=== PATIENT | male | born 1945 | race Caucasian/White ===

== ENCOUNTER 2020-10-13 06:33 | Outpatient (REF) | payer MEDICARE, BC, SELFPAY ==
[2020-10-13 08:10] LABS: MANUAL DIFF FLAG NO
[2020-10-13 08:19] LABS: Basophils Percent Auto 0.3 % (0-2); Eosinophils Absolute Auto 0.2 X10*3/uL (0.0-0.4); Eosinophils Percent Auto 2.1 % (0-4); Hematocrit 50.2 % (42-52); Hemoglobin 16.9 g/dl (14.0-18.0); Imm Gran Abs Auto 0.03 X10*3/uL (0.00-0.03); Imm Gran Pct Auto 0.4 % (0.0-0.4); Lymphocytes Absolute Auto 1.8 X10*3/uL (1.2-4.9); Mean Corpuscular HGB Conc 33.7 g/dl (31.0-36.0); Mean Corpuscular Hemoglobin 29.6 pg (27.0-33.0); Mean Corpuscular Volume 88.1 fL (80-98); Mean Platelet Volume 11.5 fL (9.4-12.4); Monocytes Absolute Auto 0.9 X10*3/uL (0.1-1.2); Monocytes Percent Auto 11.2 % (2-11); Neutrophils Absolute Auto 4.7 X10*3/uL (2.0-8.3); Platelet Count 214 X10*3/uL (160-400); Red Cell Distribution Width 13.3 % (11.0-16.0); White Blood Count 7.6 X10*3/uL (4.8-10.8)
[2020-10-13 08:39] LABS: Alanine Aminotransferase 24 U/L (0-40); Albumin Level 4.4 g/dL (3.5-5.0); Alkaline Phosphatase 69 U/L (39-117); Anion Gap 13 (12-20); Aspartate Amino Transferase 29 U/L (5-37); Bilirubin Total 0.8 mg/dL (0.0-1.0); Blood Urea Nitrogen 18 mg/dL (9-16); Carbon Dioxide 32 mmol/L (22-29); Chloride 101 mmol/L (96-108); Cholesterol 156 mg/dL; Estimated Glomerular Filt Rate > 60; Glucose Random 99 mg/dL (60-115); HDL Cholesterol 43 mg/dL; LDL Cholesterol Calculated 99 mg/dl; Potassium 3.9 mmol/L (3.3-5.1); Sodium 142 mmol/L (135-145); Total Protein 6.9 g/dL (6.5-8.0); Triglycerides 71 mg/dL
== END 2020-10-13 06:34 | disposition home or self-care (01) ==
LOC: HO.LAB 06:33
PROVIDERS: PCP Internal Medicine; Visit Provider Internal Medicine
DX: Z00.01 Encounter for general adult medical examination with abnormal findings (principal)
CPT/HCPCS: 36415; 80053; 80061; 85025

== ENCOUNTER 2022-01-11 06:16 | Outpatient (REF) | payer MEDICARE, BC, SELFPAY ==
[2022-01-11 06:29] LABS: MANUAL DIFF FLAG NO
[2022-01-11 07:14] LABS: Basophils Percent Auto 0.3 % (0-2); Eosinophils Absolute Auto 0.2 X10*3/uL (0.0-0.4); Eosinophils Percent Auto 2.2 % (0-4); Hematocrit 49.2 % (42.0-52.0); Hemoglobin 16.5 g/dl (14.0-18.0); Imm Gran Abs Auto 0.06 X10*3/uL (0.00-0.03); Imm Gran Pct Auto 0.8 % (0.0-0.4); Lymphocytes Absolute Auto 1.7 X10*3/uL (1.2-4.9); Lymphocytes Percent Auto 23.7 % (20-40); Mean Corpuscular HGB Conc 33.5 g/dl (31.0-36.0); Mean Corpuscular Hemoglobin 29.4 pg (27.0-33.0); Mean Corpuscular Volume 87.7 fL (80.0-98.0); Mean Platelet Volume 11.7 fL (9.4-12.4); Monocytes Absolute Auto 0.9 X10*3/uL (0.1-1.2); Monocytes Percent Auto 13.1 % (2-11); Neutrophils Absolute Auto 4.3 x10*3/uL (2.0-8.3); Neutrophils Percent Auto 59.9 % (45-73); Platelet Count 218 X10*3/uL (160-400); Red Blood Count 5.61 X10*6/uL (4.60-5.80); Red Cell Distribution Width 13.3 % (11.0-16.0); White Blood Count 7.2 X10*3/uL (4.8-10.8)
[2022-01-11 07:42] LABS: Alanine Aminotransferase 22 U/L (0-40); Albumin Level 4.5 g/dL (3.5-5.0); Alkaline Phosphatase 68 U/L (39-117); Anion Gap 15 (12-20); Aspartate Amino Transferase 29 U/L (5-37); Bilirubin Total 0.7 mg/dL (0.0-1.0); Blood Urea Nitrogen 15 mg/dL (9-16); Calcium 9.8 mg/dL (8.4-10.2); Carbon Dioxide 31 mmol/L (22-29); Chloride 101 mmol/L (96-108); Cholesterol 164 mg/dL; Estimated Glomerular Filt Rate 58; Glucose Random 103 mg/dL (60-115); HDL Cholesterol 44 mg/dL; LDL Cholesterol Calculated 99 mg/dl; Potassium 3.9 mmol/L (3.3-5.1); Sodium 143 mmol/L (135-145); Total Protein 6.8 g/dL (6.5-8.0); Triglycerides 106 mg/dL
[2022-01-11 08:05] LABS: Vitamin B12 482 pg/mL (200-900)
[2022-01-11 08:06] LABS: Prostate Specific Antigen 3.63 ng/mL (<0.05-4.0); Vitamin D 25-OH Total 32.8 ng/mL (>30)
== END 2022-01-11 06:17 | disposition home or self-care (01) ==
LOC: HO.LAB 06:16
PROVIDERS: PCP Internal Medicine; Visit Provider Internal Medicine
DX: Z00.01 Encounter for general adult medical examination with abnormal findings (principal); Z12.5 Encounter for screening for malignant neoplasm of prostate
CPT/HCPCS: 36415; 80053; 80061; 82306; 82607; 84153; 85025

== ENCOUNTER 2023-03-14 06:49 | Outpatient (REF) | payer MEDICARE, BC, SELFPAY ==
[2023-03-14 07:12] LABS: MANUAL DIFF FLAG NO
[2023-03-14 07:31] LABS: Basophils Percent Auto 0.3 % (0-2); Eosinophils Absolute Auto 0.1 X10*3/uL (0.0-0.4); Eosinophils Percent Auto 1.1 % (0-4); Hematocrit 47.6 % (42.0-52.0); Imm Gran Abs Auto 0.05 X10*3/uL (0.00-0.03); Imm Gran Pct Auto 0.8 % (0.0-0.4); Lymphocytes Absolute Auto 1.3 X10*3/uL (1.2-4.9); Lymphocytes Percent Auto 20.2 % (20-40); Mean Corpuscular HGB Conc 33.6 g/dl (31.0-36.0); Mean Corpuscular Hemoglobin 29.7 pg (27.0-33.0); Mean Corpuscular Volume 88.3 fL (80.0-98.0); Mean Platelet Volume 11.1 fL (9.4-12.4); Monocytes Absolute Auto 0.8 X10*3/uL (0.1-1.2); Monocytes Percent Auto 12.4 % (2-11); Neutrophils Absolute Auto 4.2 x10*3/uL (2.0-8.3); Neutrophils Percent Auto 65.2 % (45-73); Platelet Count 284 X10*3/uL (160-400); Red Blood Count 5.39 X10*6/uL (4.60-5.80); Red Cell Distribution Width 13.1 % (11.0-16.0); White Blood Count 6.5 X10*3/uL (4.8-10.8)
[2023-03-14 08:09] LABS: Alanine Aminotransferase 22 U/L (0-40); Albumin Level 4.6 g/dL (3.5-5.0); Alkaline Phosphatase 61 U/L (39-117); Anion Gap 15 (12-20); Aspartate Amino Transferase 31 U/L (5-37); Bilirubin Total 0.7 mg/dL (0.0-1.0); Blood Urea Nitrogen 15 mg/dL (9-16); Calcium 9.8 mg/dL (8.4-10.2); Carbon Dioxide 28 mmol/L (22-29); Chloride 104 mmol/L (96-108); Estimated Glomerular Filt Rate > 60; Glucose Random 107 mg/dL (60-115); Potassium 3.5 mmol/L (3.3-5.1); Sodium 143 mmol/L (135-145); Total Protein 7.3 g/dL (6.5-8.0)
[2023-03-14 08:28] LABS: Prostate Specific Antigen 7.33 ng/mL (<0.05-4.0)
[2023-03-16 02:43] LABS: LDL Cholesterol Direct 97 mg/dL (<100)
== END 2023-03-14 06:50 | disposition home or self-care (01) ==
LOC: HO.LAB 06:49
PROVIDERS: Visit Provider Internal Medicine
DX: I10 Essential (primary) hypertension (principal); E78.00 Pure hypercholesterolemia, unspecified; Z12.5 Encounter for screening for malignant neoplasm of prostate
CPT/HCPCS: 36415; 80053; 83721; 84153; 85025

== ENCOUNTER 2023-04-12 06:18 | Outpatient (REF) | payer MEDICARE, BC, SELFPAY ==
[2023-04-12 08:33] LABS: PSA,Total (Free>4and<10) 4.41 ng/mL (0.00-4.00)
[2023-04-13 10:49] LABS: Free Prostate Spec Ag 0.9 ng/mL; Percent Free Prostate Spec Ag 23 % (calc) (>25); Prostate Specific Ag Total 3.9 ng/mL (< OR = 4.0)
== END 2023-04-12 06:19 | disposition home or self-care (01) ==
LOC: HO.LABR 06:18
PROVIDERS: PCP Internal Medicine; Visit Provider Internal Medicine
DX: Z12.5 Encounter for screening for malignant neoplasm of prostate (principal); R97.20 Elevated prostate specific antigen [PSA]
CPT/HCPCS: 36415; 84153; 84154

== ENCOUNTER 2024-03-19 06:29 | Outpatient (REF) | payer MEDICARE, BC, SELFPAY ==
[2024-03-19 06:43] LABS: MANUAL DIFF FLAG NO
[2024-03-19 07:46] LABS: Basophils Percent Auto 0.3 % (0-2); Eosinophils Absolute Auto 0.1 X10*3/uL (0.0-0.4); Eosinophils Percent Auto 1.8 % (0-4); Hemoglobin 16.3 g/dl (14.0-18.0); Imm Gran Abs Auto 0.02 X10*3/uL (0.00-0.03); Imm Gran Pct Auto 0.3 % (0.0-0.4); Lymphocytes Absolute Auto 1.4 X10*3/uL (1.2-4.9); Lymphocytes Percent Auto 22.9 % (20-40); Mean Corpuscular HGB Conc 33.3 g/dl (31.0-36.0); Mean Corpuscular Hemoglobin 29.7 pg (27.0-33.0); Mean Corpuscular Volume 89.3 fL (80.0-98.0); Mean Platelet Volume 10.9 fL (9.4-12.4); Monocytes Absolute Auto 0.8 X10*3/uL (0.1-1.2); Monocytes Percent Auto 12.5 % (2-11); Neutrophils Absolute Auto 3.7 x10*3/uL (2.0-8.3); Neutrophils Percent Auto 62.2 % (45-73); Platelet Count 210 X10*3/uL (160-400); Red Blood Count 5.49 X10*6/uL (4.60-5.80); Red Cell Distribution Width 13.4 % (11.0-16.0)
[2024-03-19 08:23] LABS: Alanine Aminotransferase 25 U/L (0-40); Albumin Level 4.4 g/dL (3.5-5.0); Alkaline Phosphatase 68 U/L (39-117); Anion Gap 11 (12-20); Aspartate Amino Transferase 36 U/L (5-37); Blood Urea Nitrogen 15 mg/dL (9-16); Calcium 9.8 mg/dL (8.4-10.2); Carbon Dioxide 30 mmol/L (22-29); Chloride 102 mmol/L (96-108); Cholesterol 143 mg/dL (<200); Estimated Glomerular Filt Rate > 60; Glucose Random 106 mg/dL (60-115); HDL Cholesterol 38 mg/dL (>40); LDL Cholesterol Calculated 90 mg/dL (<100); Potassium 4.1 mmol/L (3.3-5.1); Sodium 139 mmol/L (135-145); Total Protein 7.1 g/dL (6.5-8.0); Triglycerides 79 mg/dL (<150)
[2024-03-19 08:34] LABS: Prostate Specific Antigen 5.06 ng/mL (<0.05-4.0)
== END 2024-03-19 06:30 | disposition home or self-care (01) ==
LOC: HO.LAB 06:29
PROVIDERS: PCP Internal Medicine; Visit Provider Internal Medicine
DX: E78.00 Pure hypercholesterolemia, unspecified (principal); I10 Essential (primary) hypertension; Z12.5 Encounter for screening for malignant neoplasm of prostate
CPT/HCPCS: 36415; 80053; 80061; 84153; 85025

== ENCOUNTER 2025-04-03 06:35 | Outpatient (REF) | payer MEDICARE, BC, SELFPAY ==
--- OUTSIDE RECORDS SUMMARY | 2025-04-03 06:38 | XMS_ITS | Patient Health Record ---
Author Organization [facility] Address [address] [place] [address] Care Team Providers Care Director Global Sales Name Role Phone Ibeth (RETIRED) Jerome UGADLE Primary Care Provide r Unavailable Eric Crystal Unavailable [phone] Reason For Referral No Information Medications Medication SIG (Take, Route, Frequency, Duration) Notes Start Date End Date Status Aspir-81 81mg Acti ve Klor-Con 10 10meq Active Simvastatin 40mg A ctive Atenolol 50mg Acti ve MoviPrep 100 GM Solution Reconstituted as directed Orally as directed; Duration: 1 dose 11/09/2012 Active Social History Social History Additional Details Category Social Info Options Details Miscellaneous: Marital status: single 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 alcohol Problems Problem Type SNOMED Code ICD Code Onset Dates Problem Status W/U Status Risk Notes Problem Already on aspirin (875683363) Long-term (current) use of aspirin (V58.66) Active confirmed Problem Colon cancer screening (574809913) Colon cancer screening (V76.51) Active confirmed Problem History of adenomatous polyp of colon (990727154) History of adenomatous polyp of colon (V12.72) Active confirmed Plan Of Treatment Future Test Test Name Order Date COLONOSCOPY 11/09/2012 Insurance Providers Payer Name Payer Address Payer Phone Subscriber Number Group Number Insured Name Patient Relationship to Insured Coverage Start Date Coverage End Date [facility] [address] [place], [place] [id number] [phone] [id number] PAWELERNESTINA Noe Self - patient is the insured Medical (General) History Medical History History ICD Code colonoscopy 04-04-2008--neg. except sigmoid diverticulosis and int. hemorrhoids colon polyps-tubular adenoma removed in 07/2001 hypertension Denies [place],DM,CVA,Lung disease,renal dise ase Hyperlipdemia Surgical History Surgery Date(Month/Year) hernia surgery appendectomy Basal cell on nose in 07/2012
--- OUTSIDE RECORDS SUMMARY | 2025-04-03 06:38 | XMS_ITS | Data Portability ---
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 MODERATE MUST MEET 2 OUT OF 3 ELEMENTS: PROBLEMS, DATA OR RISK ELEMENT 1: PROBLEMS ADDRESSED 1 OR MORE CHRONIC ILLNESS WITH EXACERBATION OR 2 OR MORE STABLE CHRONIC ILLNESSES OR 1 UNDIAGNOSED NEW PROBLEM OR 1 ACUTE ILLNESS W/SYMPTOMS OR 1 ACUTE COMPLICATED INJURY ELEMENT 2: DATA MUST MEET 1 OF 3 CATEGORIES CATEGORY 1: REVIEW OF PRIOR EXTERNAL NOTES, REVIEW OF RESULTS, ORDERING OF EACH TEST, ASSESSMENT REQUIRING INDEPENDENT HISTORIAN OR CATEGORY 2: INDEPENDENT INTERPRETATION OF TESTS BY ANOTHER PHYSICIAN OR SPECIALIST OR CATEGORY 3: DISCUSSION OF MGT OR TEST INTERPRETATION W/EXTERNAL PHYSICIAN OR SPECIALIST ELEMENT 3: RISK RISK OF COMPLICATIONS AND/OR MORBIDITY OR MORTALITY OF PATIENT MANAGEMENT PROVIDER MUST THOROUGHLY DOCUMENT EACH ELEMENT THAT IS COVERED Not available 03/29/2023 09:10:54 05/10/2024 05/10/2024 Patient presente d to office today for their Medicare Annual Wellness Visit. Education was provided on healthy nutrition, including a diet rich in fruits and vegetables, minimizing simple carbohydrates, salt, and saturated fats. Encouraged regular cardiovascular exercise such as walking at least 30 minutes daily, 5 times per week. Emphasized preventive health measures and educated pt on fall prevention and community-based lifestyle interventions to help reduce health risks and promote healthy living. Not available 05/10/2024 10:53:33 10/14/2024 10/14/2024 Patient presente d to office today for their Medicare Annual Wellness Visit. doing great and is staying very active lifting weights Education was provided on healthy nutrition, including a diet rich in fruits and vegetables, minimizing simple carbohydrates, salt, and saturated fats. Encouraged regular cardiovascular exercise such as walking at least 30 minutes daily, 5 times per week. Emphasized preventive health measures and educated pt on fall prevention and community-based lifestyle interventions to help reduce health risks and promote healthy living. Not available 10/14/2024 11:25:51 Plan of Treatment Reminders Order Date Submit Date Provider Last Modified By Organization Details Last Modified Time Details Appointments FOLLOW UP 15 2024 09:30A M DR RAMEY Not available Not available Not available MEDICARE ANNUAL WELLNESS 2025 09:00A M DR RAMEY Not available Not available Not available Lab lipid panel, blood 2024 025 [facility], [address] [place] [address], [id number], 10/14/2024 11:49:09 CMP, serum or plasma 2024 025 [facility], [address] [place] [address], [id number], 10/14/2024 11:49:09 PSA, serum or plasma 2024 025 [facility], [address] [place] [address], [id number], 10/14/2024 11:49:09 hemoglobi n, gastroint estinal, stool 2024 025 [facility], [address] [place] [address], [id number], 10/14/2024 11:49:09 CBC w/ auto diff 2024 025 [facility], [address] [place] [address], [id number], 10/14/2024 11:49:09 PSA, total + free, serum or plasma 2022 023 [facility], [address] [place] [address], [id number], 04/12/2023 11:07:14 PSA, total + free, serum or plasma 2022 024 [facility], [address], [place], [address], 10/03/2023 11:33:21 fecal occult blood, immunoass ay, stool 2022 023 [facility], [address], [address], [place], [address], 03/29/2023 10:03:43 Referral otolaryng ologist referral - noted to have sudden onset of hearing loss bilat with some tinnitus 2024 025 [facility], [address] [place], [address], 10/14/2024 13:57:41 Procedures None recorded. Surgeries None recorded. Imaging None recorded. Medication Orders ciproflox acin 500 mg tablet 2024 025 [facility][id number], [address] [place] [address], [id number], 08/19/2024 15:10:05 prednison e 10 mg tablet 2024 025 [facility][id number], [address] [place] [address], [id number], 08/19/2024 15:10:05 Patient TargetsNo targets recorded. Patient Instructions Encounter Date Encounter Id Patient Instructions Last Modified By Organization Details Last Modified Time 03/29/2023 [id number] prostate biopsy: about this test Not available 03/29/2023 09:19:10 colon polyps: care instructions Not available 03/29/2023 09:16:54 05/10/2024 [id number] advance care planning: care instructions Not available 05/10/2024 11:24:52 Discussed and explained advance directives such as standard forms to the . Face to face discussion lasted for a duration of ___ minutes. Not available 05/10/2024 10:53:33 10/14/2024 [id number] hearing loss: care instructions Not available 10/14/2024 11:31:36 advance care planning: care instructions Not available 10/14/2024 11:28:45 Discussed and explained advance directives such as standard forms to the . Face to face discussion lasted for a duration of ___ minutes. 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 Problems Name Problem SNOMED Code Status Onset Date Resolution Date Notes Provider Name and Address Organization Details Recorded Time Essential hypertensi on 14798527 Active 2018 1999 Not Available [facility] 2 09:40:59 Hyperchole sterolemia 41734682 Active 2018 2005 Not Available [facility] 2 09:40:59 Basal cell carcinoma of skin 116735543 Active 2018 nose Not Available [facility] 2 09:40:59 Polyp of colon 52786753 Active 2018 2002 Not Available [facility] 2 09:40:59 Gastroesop hageal reflux disease 131674726 Active 2020 Not Available [facility] 2 09:40:59 Prostate specific antigen above reference range 649712340 Active 2022 Pillo Ramey DO [address] [place] [address], [phone], [facility] 3 09:18:27 Acute sinusitis 36166423 Active 2024 OVIDIO WHEELER [address] [place] [address], [phone], [facility] 5 15:05:46 Acute otitis media 7085451 Active 2024 OVIDIO WHEELER [address] [place] [address], [phone], [facility] 5 15:07:32 Acute otitis media 3371027 Active 2024 OVIDIO WHEELER [address] [place] [address], [phone], [facility] 5 15:07:38 Sensorineu ral hearing loss of bilateral ears 691765097 Active 2024 Pillo Ramey, [address] [place] [address], [phone], [facility] 5 11:30:23 Problem Notes None recorded. Procedures Surgical History Date Name Laterality Status Provider Name and Address Organization Details Recorded Time 10/14/19 18 extraction of cataract completed Fatoumata Cotton NP, S [address] [place] [address], [phone], [facility] 09/26/2018 11:55:03 05/15/19 12 excision of hernial sac of left inguinal canal completed Fatoumata Cotton NP, S [address] [place] [address], [phone], [facility] 09/26/2018 12:24:59 Imaging Results None recorded. Procedure Notes None recorded. Medical Equipment None Reported. Allergies No known drug allergies Medications Name Sig Start Date Stop Date Status Note LastModified by Organization Details LastModified Time amoxicillin 500 mg capsule 07/23 completed Not Available Not Available Not Available neomycin-po lymyxin-hyd rocort 3.5 mg/mL-10,00 0 unit/mL-1 % ear solution TAKE 2 DROPS (OTIC (EAR)) 3 TIMES PER DAY FOR 10 DAYS 08/19 completed Not Available Not Available Not Available prednisone 10 mg tablet PLEASE SEE ATTACHED FOR DETAILED DIRECTION S active Not Available Not Available No t Available cetirizine 10 mg tablet TAKE 1 TABLET BY MOUTH EVERY DAY active Not Available Not Available No t Available atenolol 50 mg-chlortha lidone 25 mg tablet TAKE 1 TABLET BY MOUTH EVERY DAY active Not Available Not Available No t Available potassium chloride ER 10 mEq tablet,exte nded release TAKE 1 TABLET BY MOUTH EVERY DAY active Not Available Not Available No t Available ciprofloxac in 500 mg tablet TAKE 1 TABLET BY MOUTH EVERY 12 HOURS FOR 7 DAYS active Not Available Not Available No t Available simvastatin 40 mg tablet TAKE 1 TABLET BY MOUTH EVERY DAY active Not Available Not Available No t Available ketorolac 0.5 % eye drops 04/02 completed Not Available Not Available Not Available amoxicillin 875 mg tablet TAKE 1 TABLET BY MOUTH TWICE A DAY FOR 10 DAYS 08/19 completed Not Available Not Available Not Available mupirocin calcium 2 % topical cream 04/15 completed Not Available Not Available Not Available omeprazole 20 mg capsule,del ayed release TAKE 1 CAPSULE BY MOUTH EVERY DAY active Not Available Not Available No t Available mupirocin 2 % topical ointment APPLY TWICE A DAY TO SURGICAL SITE FOR 14 DAYS OR UNTIL FULLY HEALED 03/29 completed Not Available Not Available Not Available ketoconazol e 2 % topical cream APPLY TO FACE TWICE DAILY FOR MAINTENAN CE. 03/29 completed Not Available Not Available Not Available naproxen 500 mg tablet 04/15 completed Not Available Not Available Not Available Boostrix Tdap 2.5 Lf unit-8 mcg-5 Lf/0.5 mL intramuscul ar syringe 04/02 completed Not Available Not Available Not Available diclofenac 1 % topical gel Apply 2 g 4 times a day by topical route as directed for 30 days. 04/15 completed Not Available Not Available Not Available Fluzone High-Dose 9109-5207 (PF) 180 mcg/0.5 mL intramuscul ar syringe 04/02 completed Not Available Not Available Not Available Fluad Quad (6 5yr up)(PF) 60 mcg (15 mcg x 4)/0.5mL IM syringe TO BE ADMINISTE RED BY PHARMACIS T FOR IMMUNIZAT ION 04/15 completed Not Available Not Available Not Available Vitals Date Recorded Body height Body mass index (BMI) Body weight Heart rate Oxygen saturation Systolic And Diastolic Provider Name and Address Organization Details Last Updated DateTime 5 166.37 cm 24.5 kg/m2 40709.9 8 g 56 /min 97 % 124/82 mm[Hg] [facility] 5 14:50:41 Date Recorded Systolic And Diastolic Provider Name and Address Organization Details Last Updated DateTime 10/03/2023 126/78 mm[Hg] Berta Pelayo O [address] [place], [address], [facility] 10/03/2023 11:40:52 Date Recorded Body height Body mass index (BMI) Body weight Heart rate Respiratory rate Oxygen saturation Provider Name and Address Organization Details Last Updated DateTime 4 166.37 cm 24.7 kg/m2 09690.0 9 g 56 /min 16 /min 99 % Abhijete French [facility] 4 10:59:23 Date Recorded Body height Body mass index (BMI) Body weight Oxygen saturation Heart rate Systolic And Diastolic Provider Name and Address Organization Details Last Updated DateTime 5 166.37 cm 24.2 kg/m2 38541.9 5 g 99 % 49 /min 128/82 mm[Hg] ISABELA WOO [facility] 5 11:02:29 Date Recorded Body height Body mass index (BMI) Body weight Heart rate Oxygen saturation Systolic And Diastolic Provider Name and Address Organization Details Last Updated DateTime 3 163.2 cm 24.9 kg/m2 83795.4 9 g 54 /min 98 % 111/81 mm[Hg] Joseline Etienne [facility] 3 08:57:32 Date Recorded Body height Body mass index (BMI) Body weight Heart rate Oxygen saturation Systolic And Diastolic Provider Name and Address Organization Details Last Updated DateTime 4 166.37 cm 24.9 kg/m2 02681.6 8 g 52 /min 97 % 128/78 mm[Hg] Abhijeet French [facility] 4 10:55:12 Social History Question Answer Notes LastModified by Organizat ion Details LastModified Time Tobacco Smoking Status Never Smoker Jesusita day [facility] 09/26/2018 11:46:57 What Is Your Level Of Caffeine Consumption? Occasional 1 Cup Of Tea Information not available 04/02/2019 What Was The Date Of Your Most Recent Tobacco Screening? 10/14/2024 [email or web address] Information not available 10/14/2024 Sex: Unknown Functional Status Question Answer Note LastModified by Organizat ion Details LastModified Time What is your level of alcohol consumption? None Information not available 04/02/2019 What is your exercise level? Moderate walking Information not available 04/02/2019 Mental Status None recorded. Family History Relationship Description Onset Age of this Age Resolved Age Notes LastModified by Organization Details LastModified Time Mother Essential hypertension [email or web address] Not available 06/2024 10:54:02 Mother Hypercholest erolemia sbucko Not available 2018 09:04:16 Mother Cerebrovascu lar accident [email or web address] Not available 03/2019 09:04:27 Father Atrial fibrillation [email or web address] Not available 06/2024 10:54:02 Father Essential hypertension [email or web address] Not available 06/2024 10:54:02 Brother Essential hypertension [email or web address] Not available 06/2024 10:54:02 Brother Hypercholest erolemia sbucko Not available 2018 09:06:03 Brother Type 2 diabetes mellitus [email or web address] Not available 2024 10:54:02 Brother Cerebrovascu lar accident [email or web address] Not available 12:24:12 Sister Essential hypertension [email or web address] Not available 06/2024 10:54:02 Sister Essential hypertension [email or web address] Not available 06/2024 10:54:02 Sister Hypercholest erolemia sbucko Not available 2018 09:06:15 Sister Hypercholest erolemia sbucko Not available 2018 09:06:19 Medical History Condition Response Allergies/Hayfever N Heart Problems N Coronary Artery Disease N Kidney Stones N Blood Diseases N Hyperthyroidism N Blood Transfusion N Lung Disease N Depression N COPD N Defects or Inherited Disease N Anemia N Difficulty Swallowing N Constipation N Anesthesia Complications N Anxiety Disorder N Diabetes N Muscle, Joint, or Bone Problems Y Obesity N Polyps N Mental Disorder N Congestive Heart Failure (CHF) N Cancer N Abuse/Domestic Violence N Diverticulitis N Asthma N Bladder or Kidney Problems N Reflux/GERD N High Cholesterol Y Hepatitis N Liver Disease N Pulmonary Embolism N Hypertension Y Chicken Pox Y Kidney Disease N Immunizations Vaccine Type Date Status Note Provider Nam e and Address Organization Details Recorded Time zoster recombinant 07/02/19 22 completed [facility] 03/29/2023 08:49:04 Influenza, split virus, quadrivalent, preservative 03/31/20 21 completed [facility] 03/29/2023 08:49:04 SARS-COV-2 (COVID-19) vaccine, UNSPECIFIED 05/10/20 23 completed Joselinebing Etienne [facility] 05/10/2023 10:46:04 Tdap 04/23/20 19 completed Pillo Ramey, [address] [place] [address], [phone], [facility] 05/10/2024 11:20:52 influenza, unspecified formulation 03/26/20 24 completed Pillo Ramey DO [address] [place] [address], [phone], [facility] 05/10/2024 11:24:33 tetanus toxoid, unspecified formulation 07/14/19 10 completed Joseline Gencarelle [facility] 03/29/2023 08:49:04 pneumococcal, unspecified formulation 02/13/20 12 completed Joseline Gencarelle [facility] 03/29/2023 08:49:04 pneumococcal, unspecified formulation 08/05/19 15 completed Joseline Gencarelle [facility] 03/29/2023 08:49:04 zoster live 09/13/19 13 completed Jesusita Darby [facility] 07/23/2018 08:59:38 Tdap 09/29/19 19 completed Viridiana Lewis [facility] 10/01/2018 08:08:17 pneumococcal polysaccharide PPV23 09/29/19 19 completed Joseline Gencarelle [facility] 03/29/2023 08:49:04 Influenza, split virus, quadrivalent, preservative 02/13/20 19 completed Joseline Gencarelle [facility] 03/29/2023 08:49:04 Influenza, split virus, quadrivalent, preservative 01/19/20 18 completed Joseline Gencarelle null, [facility] 03/29/2023 08:49:04 Influenza, split virus, quadrivalent, preservative 01/08/20 20 completed Joseline Gencarelle [facility] 03/29/2023 08:49:04 COVID-19, mRNA, LNP-S, PF, 30 mcg/0.3 mL dose 08/14/19 21 completed Joseline Gencarelle null, [facility] 03/29/2023 08:49:04 COVID-19, mRNA, LNP-S, PF, 30 mcg/0.3 mL dose 09/05/19 21 completed Joseline Gencarelle [facility] 03/29/2023 08:49:04 Past Encounters Encounter ID Performer Location Encounter Start Date Encounter Closed Date Diagnosis/Indication Diagnosis SNOMED-CT Code Diagnosis ICD10 Code Diagnosis IMO Codes Diagnosis Note Pillo Ramey [facility] [address], [place] [address] 09/26/2018 11:31:01 09/26/2018 13:39:42 Hypercholesterolemia 25412088 E78.00 Essential hypertension 46493320 I10 stable Vitamin D deficiency 347 06756 E55.9 Screening procedure 2012 5006 Z13.9 Active or passive immunization 149170788 Z23 Impacted cerumen 7249496 6 H61.23 [facility] examination 011445575 Z00.00 [id number] Pillo Ramey [facility] [address], [place] [address] 04/02/2019 09:01:33 04/02/2019 10:02:21 Adult health examination 911903072 Z00.01 has thumb djd will try to get him some diclofenac gel Osteoarthr osis of the carpometacarpal joint of the thumb 44842520 M18.9 will try voltaren gell if unable consider hand specialist [id number] Pillo Ramey [facility] [address],[place] [address] 08/19/2019 10:02:07 08/19/2019 10:34:36 Essential hypertension 98693332 I10 doing great and is feeling good will cont to do what hes doing as he is active and eating right Hypercholesterolemia 136 33066 E78.00 excellent lab doing great no change in meds [id number] Pillo Ramey [facility] [address],[place] [address] 04/15/2020 14:16:08 04/15/2020 15:04:04 Active or passive immunization 286737765 Z23 discussed and he is utd Adult heal th examination 509514764 Z00.01 has thumb djd will try to get to the hand doc but he will need to call she has offered him a mary inj to the base of the thumb [id number] Pillo Hoodmellissa [address],[place] [address] 10/26/2020 09:45:49 10/26/2020 11:07:23 Hypercholesterolemia 56630549 E78.00 excellent lab doing great no change in meds ldl was 98 hdl 43 Essential hypertension 08421223 I10 doing great and is feeling good will cont to do what hes doing as he is active and eating right Gastroesop hageal reflux disease 109192414 K21.9 will have the pt start the omeprazole daily and then modify to keep the reflux quiet [id number] Pillo Quinonez Meenakshi [facility] [address] [place] [address],[place] [address] 07/23/2021 11:15:44 07/26/2021 14:21:45 Active or passive immunization 164077185 Z23 discussed and he is utd Adult heal th examination 041104729 Z00.01 has thumb djd did get to the hand doc but he will need to call as needed base of the thumb has more pain lately Essential hypertension 56595044 I10 doing great and is feeling good will cont to do what hes doing as he is active and eating rightbp is excellent Gastroesop hageal reflux disease 779266250 K21.9 will have the pt start the omeprazole daily and then modify to keep the reflux quiet Hypercholesterolemia 136 00523 E78.00 excellent lab doing great no change in meds ldl was 98 hdl 43 [id number] Pillo Ramey [facility] [address] [facility] [facility], [place] [address] 01/24/2022 10:14:24 01/24/2022 10:52:17 Essential hypertension 08145301 I10 doing great and is feeling good will cont to do what hes doing as he is active and eating rightbp is excellent Gastroesop hageal reflux disease 857150113 K21.9 will have the pt start the omeprazole daily and then modify to keep the reflux quiet Hypercholesterolemia 136 12444 E78.00 excellent lab doing great no change in meds ldl was 98 hdl 43 [id number] Pillo Ramey [facility] [address] [facility] [facility], [place] [address] 09/20/2022 11:16:28 09/20/2022 12:19:38 Active or passive immunization 244937087 Z23 discussed and he is utd Adult heal th examination 614287842 Z00.00 here for for cpe doing great no issues amzing cont exercising and eating good'rev wed lab from 6 mo ago Essential hypertension 96616856 I10 doing great and is feeling good will cont to do what hes doing as he is active and eating rightbp is excellent Hypercholesterolemia 136 53760 E78.00 excellent lab doing great no change in meds ldl was 98 hdl 43 [id number] Pillo Ramey [facility] [address],[place] [address] 03/29/2023 08:48:52 03/29/2023 09:51:45 Basal cell carcinoma of skin 559684547 C44.91 followed by dermatolog ist Essential hypertension 74878639 I10 doing great and is feeling good will cont to do what he's doing as he is active and eating rightbp is excellent Polyp of colon 93064989 K63.5 will order cologuard Prostate s pecific antigen above reference range 426569097 R97.20 [id number] Pillo Ramey [facility] [address] [facility],[place] [address] 10/03/2023 10:50:54 10/03/2023 13:10:12 Active or passive immunization 021691836 Z23 discussed and he is utd Adult heal th examination 462767900 Z00.00 here for for cpe doing great no issues amzing cont exercising and eating good'revie wed lab from 6 mo ago Depression screening 171 393273 Z13.31 Negative Basal cell carcinoma of skin 819086503 C44.91 followed by dermatolog ist no issues Hypercholesterolemia 136 02352 E78.00 last lab was excellent lab doing great no change in meds ldl was 98 hdl 43 Gastroesop hageal reflux disease 269443441 K21.9 the omeprazole daily working well [id number] Pillo Ramey [facility] [address] [place] [address] 05/10/2024 10:48:13 05/10/2024 11:27:29 Adult health examination 731851612 Z00.01 here for for cpe doing great no issues amzing cont exercising and eating good'revie wed lab from 6 mo ago Screening for cardiovascular system disease 031779147 Z13.6 reviewed lipids in detail Screening for malignant neoplasm of colon 948647599 Z12.11 cologuard done last apr Pillo Ramey [facility] [address] [facility],[place] [address] 08/19/2024 14:37:39 08/19/2024 15:16:58 Acute sinusitis 21431074 J01.01 will set up with pred taper for the sig inflammati on Acute otitis media 12543 03 H65.03 will set up with cipro [id number] Pillo Ramey [facility] [address] [facility] [facility],[place] [address] 10/14/2024 10:53:10 10/14/2024 11:41:01 Active or passive immunization 658718943 Z23 discussed and he is utd Essential hypertension 83094675 I10 doing great and is feeling good will cont to do what he's doing as he is active and eating rightbp is excellent Hypercholesterolemia 136 20170 E78.00 last lab was excellent lab doing great no change in meds ldl was 98 hdl 43 Screening for cardiovascular system disease 725892378 Z13.6 reviewed lipids in detail Screening for malignant neoplasm of colon 587289537 Z12.11 cologuard done last dec Well adult 998483990 Z00 .00 [id number] here for for cpe doing great no issues amzing cont exercising and eating good'rev wed lab from 6 mo ago Sensorineu ral hearing loss of bilateral ears [id number] H90.3 [id number] Health Concerns Section Related Observation LastModified by Organization Detai ls LastModified Time None Recorded Concern Status LastModified by Organization Details LastModified Time None Recorded Advance Directives Directive None Recorded Payers Insurance Date Sequence Insurance Name Policy Number Policy House Covered Member ID House Member ID Guarantor Name 10/14/2024 2 [place] [employer] [id number] Dean Garcia [id number] Dean Garcia 10/14/2024 1 [place] [employer] Dean Garcia [id number] Dean Garcia Notes Date Note Type Note Provider Name and Address Organization Details Recorded Time 03/29/20 23 text/htm l Care Management - HypertensionReported by PatientHPIFor self care, patient reportsnot under emotional stress. For severity, patient reportssymptoms are improvinganddoes not interfere with daily activities. For associated symptoms, patient reportsno dizziness,no lightheadedness,no chest pain,no shortness of breath,no palpitations,no edema,no calf muscle cramps,no blurred vision,no confusion,no headaches, andno fatigue.ROS as noted in the HPI here for rechk and is feeling goodno cp nosobstates no blood in stool etcappetite good sleep is okhad a BCC removed side of neck this summer Pillo Ramey DO [address] [facility], [place], [address], [facility] 03/29/2023 09:20:41 10/03/19 24 text/htm l Annual WellnessReported by PatientSocial/Behavioral HistoryFor diet and nutrition, patient reportshealthy diet. For fracture risk, patient reportsno history of fractures,no recent explained fracture,no sudden unexplained fractures, andno previous musculoskeletal injuries. For physical activity, patient reportsexercises on a regular basis,recent increase in physical activity, andgood physical condition. For additional lifestyle factors, patient reportsno tobacco use,no alcohol intake, andstopped drinking alcohol.Mental Status:For depression risk, patient reportsnever feels sad, empty, or tearful,no loss of interest in activities,no significant changes in weight,no sleep disturbances or insomnia,no agitation,no loss of energy,no feelings of worthlessness or guilt,no thoughts of suicide,no history of depression, andno history of mood disorders.Functional AbilityFor hearing, patient reportsno loss of hearing. For vision, patient reportsno vision problems.ROS as noted in the HPI here for rechk annual doing wellno cp no sobsleep is better appetite is goodstays very active walks daily Pillo Ramey, DO [address] [place], [address], [facility] 10/03/2023 11:44:32 05/10/20 24 text/htm l Medicare Annual Wellness VisitReported by PatientSocial/Behavioral HistoryFor diet and nutrition, patient reportshealthy diet. For fracture risk, patient reportsno history of fractures,no recent explained fracture,no sudden unexplained fractures, andno previous musculoskeletal injuries. For physical activity, patient reportsexercises on a regular basis,recent increase in physical activity, andgood physical condition.Mental Status:For depression risk, patient reportsnever feels sad, empty, or tearful,no loss of interest in activities,no significant changes in weight,no sleep disturbances or insomnia,no agitation,no loss of energy,no feelings of worthlessness or guilt,no thoughts of suicide,no history of depression, andno history of mood disorders. For orientation, patient reportsno disorientation to time,no disorientation to date, andno disorientation to place. For concentration and memory, patient reportsno decreased concentrating ability,no memory lapses or loss, anddoes not forget words. For speech/motor difficulties, patient reportsno speech difficulties,no difficulty expressing formulated concepts,no difficulty with fine manipulative tasks,no difficulty writing/copying,no slowed reaction time, anddoes not knock things over when trying to pick them up.Functional AbilityFor hearing, patient reportsno loss of hearing. For vision, patient reportsno vision problems. For activities of daily living, patient reportsable to bathe with limited or no assistance,able to contol urination and bowels,able to dress with limited or no assistance,able to feed self with limited or no assistance,able to get out of chair or bed with limited or no assistance,able to groom with limited or no assistance, andable to toilet with limited or no assistance. For instrumental activities of daily living, patient reportsable to do house work with limited or no assistance,able to grocery shop with limited or no assistance,able to manage medications with limited or no assistance,able to manage money with limited or no assistance,able to prepare meals with limited or no assistance, andable to use the phone with limited or no assistance. For falls risk assessment, patient reportsno frequent falls while walking,no fall in the past year,no fall since last visit, andno dizziness/vertigo. For home safety, patient reportsno unsafe bryant hazzards,no unsafe stairs,no unsafe gas appliances,working smoke/co detectors,wears protective head gear for biking/high velocity,use of seatbelts,practicing 'safer sex',no vision or hearing loss while driving,no fire arms,has hand bars in the bathroom/shower, andgood lighting in the home.ROS as noted in the HPI here for chk up with mwv no cp no sob sleep and appetite are goodbowels good bladder ok cologuard done in april last year Pillo Ramey DO [address] [facility], [place], [address], [facility] 05/10/2024 11:25:17 08/20/19 25 text/htm l ROS as noted in the HPI f/u UC sinus infection and ear infection 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 For severity, patient reportssymptoms are improvinganddoes not interfere with daily activities. For associated symptoms, patient reportsno dizziness,no lightheadedness,no chest pain,no shortness of breath,no palpitations,no edema,no calf muscle cramps,no blurred vision,no confusion,no headaches, andno fatigue. Care Management - HyperlipidemiaReported by PatientHPIFor control, patient reportsusually well controlled,improving, andat goal. For complications, patient reportsno coronary artery disease,no heart attack,no cardiovascular disease,no pancreatitis, andno stroke. Medicare Annual Wellness VisitReported by PatientSocial/Behavioral HistoryFor diet and nutrition, patient reportshealthy diet. For fracture risk, patient reportsno history of fractures,no recent explained fracture,no sudden unexplained fractures, andno previous musculoskeletal injuries. For physical activity, patient reportsexercises on a regular basis,recent increase in physical activity, andgood physical condition.Mental Status:For depression risk, patient reportsnever feels sad, empty, or tearful,no loss of interest in activities,no significant changes in weight,no sleep disturbances or insomnia,no agitation,no loss of energy,no feelings of worthlessness or guilt,no thoughts of suicide,no history of depression, andno history of mood disorders. For orientation, patient reportsno disorientation to time,no disorientation to date, andno disorientation to place. For concentration and memory, patient reportsno decreased concentrating ability,no memory lapses or loss, anddoes not forget words. For speech/motor difficulties, patient reportsno speech difficulties,no difficulty expressing formulated concepts,no difficulty with fine manipulative tasks,no difficulty writing/copying,no slowed reaction time, anddoes not knock things over when trying to pick them up.Functional AbilityFor hearing, patient reportsno loss of hearing. For vision, patient reportsno vision problems. For activities of daily living, patient reportsable to bathe with limited or no assistance,able to contol urination and bowels,able to dress with limited or no assistance,able to feed self with limited or no assistance,able to get out of chair or bed with limited or no assistance,able to groom with limited or no assistance, andable to toilet with limited or no assistance. For instrumental activities of daily living, patient reportsable to do house work with limited or no assistance,able to grocery shop with limited or no assistance,able to manage medications with limited or no assistance,able to manage money with limited or no assistance,able to prepare meals with limited or no assistance, andable to use the phone with limited or no assistance. For falls risk assessment, patient reportsno frequent falls while walking,no fall in the past year,no fall since last visit, andno dizziness/vertigo. For home safety, patient reportsno unsafe bryant hazzards,no unsafe stairs,no unsafe gas appliances,working smoke/co detectors,wears protective head gear for biking/high velocity,use of seatbelts,practicing 'safer sex',no vision or hearing loss while driving,no fire arms,has hand bars in the bathroom/shower, andgood lighting in the home.ROS as noted in the HPI here for mwv doing well overall Pillo Ramey, DO [address] [facility], [place], [address], [facility] 10/14/2024 11:32:00
[2025-04-03 06:59] LABS: MANUAL DIFF FLAG NO
[2025-04-03 07:23] LABS: Hematocrit 48.2 % (42.0-52.0); Hemoglobin 16.2 g/dl (14.0-18.0); Imm Gran Abs Auto 0.02 X10*3/uL (0.00-0.03); Imm Gran Pct Auto 0.3 % (0.0-0.4); Lymphocytes Absolute Auto 1.5 X10*3/uL (1.2-4.9); Mean Corpuscular HGB Conc 33.6 g/dl (31.0-36.0); Mean Corpuscular Hemoglobin 29.9 pg (27.0-33.0); Mean Corpuscular Volume 89.1 fL (80.0-98.0); NRBC Abs Auto 0.000 X10*3/uL (0.0-0.012); NRBC Pct Auto 0.0 /100WBC (0.0-0.2); Platelet Count 221 X10*3/uL (160-400); Red Blood Count 5.41 X10*6/uL (4.60-5.80); White Blood Count 6.6 X10*3/uL (4.8-10.8)
[2025-04-03 07:45] LABS: Alanine Aminotransferase 23 U/L (0-40); Albumin Level 4.7 g/dL (3.5-5.0); Alkaline Phosphatase 67 U/L (39-117); Anion Gap 11 (12-20); Aspartate Amino Transferase 35 U/L (5-37); Blood Urea Nitrogen 18 mg/dL (9-16); Calcium 9.6 mg/dL (8.4-10.2); Carbon Dioxide 31 mmol/L (22-29); Chloride 104 mmol/L (96-108); Cholesterol 147 mg/dL (<200); Estimated Glomerular Filt Rate > 60; HDL Cholesterol 40 mg/dL (>40); Potassium 4.0 mmol/L (3.3-5.1); Sodium 142 mmol/L (135-145); Total Protein 6.9 g/dL (6.5-8.0); Triglycerides 79 mg/dL (<150)
[2025-04-03 08:07] LABS: Prostate Specific Antigen 5.16 ng/mL (<0.05-4.0)
== END 2025-04-03 06:36 | disposition home or self-care (01) ==
LOC: HO.LAB 06:35
PROVIDERS: PCP Internal Medicine; Visit Provider Internal Medicine
DX: Z00.00 Encounter for general adult medical examination without abnormal findings (principal); Z12.5 Encounter for screening for malignant neoplasm of prostate; Z12.11 Encounter for screening for malignant neoplasm of colon; I10 Essential (primary) hypertension; Z13.6 Encounter for screening for cardiovascular disorders
CPT/HCPCS: 36415; 80053; 80061; 84153; 85025

== ENCOUNTER 2025-04-04 14:01 | Outpatient (REF) | payer MEDICARE, BC, SELFPAY ==
[2025-04-16 14:49] LABS: FIT Int Ctl YES; FIT1 NEGATIVE (NEGATIVE); FIT2 NEGATIVE (NEGATIVE)
[2025-04-16 14:51] LABS: FIT Lot M502755
--- OUTSIDE RECORDS SUMMARY | 2025-04-16 16:51 | XMS_ITS | Data Portability ---
Author Organization [facility], Telehealth Patient Home Address [address] [place] [address] Assessment Encounter Date Assessment Date Assessment LastModified by Organization Details LastModified Time 05/10/2024 05/10/2024 Patient presente d to office [...] promote healthy living. 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 MODERATE MUST MEET 2 OUT OF [...] EACH ELEMENT THAT IS COVERED Not available 04/14/2025 10:00:59 Plan of Treatment Reminders Order Date Submit Date Provider Last Modified By Organization Details Last Modified Time Details Appointments MEDICARE ANNUAL WELLNESS 2025 09:00A M DR RAMEY Not available Not available Not available Lab lipid panel, blood 2024 025 [facility], [address] [place] [address], [address], 10/14/2024 11:49:09 CMP, serum or plasma 2024 025 [facility], [address] [place] [address], [id number], 04/04/2025 11:13:21 PSA, serum or plasma 2024 025 [facility], [address] [place] [address], [address], 10/14/2024 11:49:09 hemoglobi n, gastroint estinal, stool 2024 025 [facility], [address] [place] [address], [address], 04/15/2025 10:55:24 CBC w/ auto diff 2024 025 [facility], [address] [place] [address], [address], 10/14/2024 11:49:09 Referral otolaryng ologist referral - noted to have sudden onset of hearing loss bilat with some tinnitus [address] [facility], [address] [place], [address], 10/14/2024 13:57:41 Procedures None recorded. Surgeries None recorded. Imaging bone density 2024 025 [email or web address] [facility] (Imaging), [address] [place] [address], [address], 04/16/2025 16:40:29 Medication Orders ciproflox acin 500 mg tablet 2024 025 [facility] #[id number], [address] [place] [address], [id number], 04/14/2025 09:30:00 prednison e 10 mg tablet 2024 025 [facility] #[id number], [address] [place] [address], [id number], 04/14/2025 09:30:21 Patient TargetsNo targets recorded. Patient Instructions Encounter Date Encounter Id Patient Instructions Last Modified By Organization Details Last Modified Time 05/10/2024 [id number] advance care planning: care instructions Not available 05/10/2024 11:24:52 Discussed and explained advance directives such as standard forms to the . Face to face discussion lasted for a duration of ___ minutes. Not available 05/10/2024 10:53:33 10/14/2024 [id number] hearing loss: care instructions Not available 10/14/2024 11:31:36 advance care planning: care instructions Not available 10/14/2024 11:28:45 Discussed and explained advance directives such as standard forms to the . Face to face discussion lasted for a duration of ___ minutes. 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 Sensorineural hearing loss of [...] Organization Details Recorded Time Essential hypertensi on 99759845 Active 2018 Not Available [facility] 2 09:40:59 Hyperchole sterolemia 81391698 Active 2018 2005 Not Available [facility] 2 09:40:59 Basal cell carcinoma of skin 663537783 Active 2018 nose Not Available [facility] 2 09:40:59 Polyp of colon 60721603 Active 2018 2002 Not Available [facility] 2 09:40:59 Gastroesop hageal reflux disease 949592102 Active 2020 Not Available [facility] 2 09:40:59 Prostate specific antigen above reference range 144352912 Active 2022 Pillo Ramey DO [address] [place] [address], [address], [facility] 3 09:18:27 Acute sinusitis 10492251 Active 2024 OVIDIO WHEELER [address] [place] [address], [address], [facility] 5 15:05:46 Acute otitis media 1959490 Active 2024 OVIDIO WHEELER [address] [place] [address], [address], [facility] 5 15:07:32 Acute otitis media 3504179 Active 2024 OVIDIO WHEELER [address] [place] [address], [address], [facility] 5 15:07:38 Sensorineu ral hearing loss of bilateral ears 909862530 Active 2024 Pillo Ramey DO [address] [place] [address], [address], [facility] 5 11:30:23 Problem Notes None recorded. Procedures Surgical History Date Name Laterality Status Provider Name and Address Organization Details Recorded Time 10/14/19 18 extraction of cataract completed Fatoumata Cotton NP, [address] [place], [address], [facility] 09/26/2018 11:55:03 05/15/19 12 excision of hernial sac of left inguinal canal completed Fatoumata Cotton NP, [address] [place], [address], [facility] 09/26/2018 12:24:59 Imaging Results None recorded. Procedure [...] PLEASE SEE ATTACHED FOR DETAILED DIRECTION S 04/14 completed Not Available Not Available Not Available cetirizine 10 mg tablet TAKE 1 TABLET BY MOUTH EVERY DAY 04/14 completed Not Available Not Available Not Available atenolol 50 mg-chlortha lidone 25 mg tablet TAKE 1 TABLET BY MOUTH EVERY DAY active Not Available Not Available No t Available potassium chloride ER 10 mEq tablet,exte nded release TAKE 1 TABLET BY MOUTH EVERY DAY active Not Available Not Available No t Available ciprofloxac in 500 mg tablet TAKE 1 TABLET BY MOUTH EVERY 12 HOURS FOR 7 DAYS 04/14 completed Not Available Not Available Not Available simvastatin 40 mg tablet TAKE 1 [...] Available Not Available Not Available Fluzone High-Dose 8037-9478 (PF) 180 mcg/0.5 mL intramuscul ar syringe 04/02 completed Not Available Not Available Not Available Fluad Quad (6 5yr up)(PF) 60 mcg (15 mcg x 4)/0.5mL IM syringe TO BE ADMINISTE RED BY [employer] Enterprises[employer] T FOR IMMUNIZAT ION 04/15 completed Not Available Not Available Not Available Vitals Date Recorded Body height Body mass index (BMI) Body weight Heart rate Oxygen saturation Systolic And Diastolic Provider Name and Address Organization Details Last Updated DateTime 5 166.37 cm 24.5 kg/m2 50217.9 8 g 56 /min 97 % 124/82 mm[Hg] Frieda Blankenship [facility] 5 14:50:41 Date Recorded Systolic And Diastolic Provider Name and Address Organization Details Last Updated DateTime 10/03/2023 126/78 mm[Hg] Berta Pelayo O [address] [place], [address], [facility] 10/03/2023 11:40:52 Date Recorded Body height Body mass index (BMI) Body weight Heart rate Respiratory rate Oxygen saturation Provider Name and Address Organization Details Last Updated DateTime 4 166.37 cm 24.7 kg/m2 61418.0 9 g 56 /min 16 /min 99 % Abhijeet French [facility] 4 10:59:23 Date Recorded Body height Body mass index (BMI) Body weight Oxygen saturation Heart rate Systolic And Diastolic Provider Name and Address Organization Details Last Updated DateTime 5 166.37 cm 24.2 kg/m2 42183.9 5 g 99 % 49 /min 128/82 mm[Hg] ISABELA WOO [facility] 5 11:02:29 Date Recorded Body height Oxygen saturation Heart rate Systolic And Diastolic Provider Name and Address Organization Details Last Updated DateTime 04/14/2025 166.37 cm 99 % 55 /min 128/82 mm[Hg] ISABELA WOO [facility] 04/14/2025 09:32:36 Date Recorded Body height Body mass index (BMI) Body weight Heart rate Oxygen saturation Systolic And Diastolic Provider Name and Address Organization Details Last Updated DateTime 4 166.37 cm 24.9 kg/m2 04743.6 8 g 52 /min 97 % 128/78 mm[Hg] Abhijeet Nogueirain [facility] 4 10:55:12 Social History Question Answer Notes LastModified by BemDireto Details LastModified Time Tobacco Smoking Status [facility]oker [facility]/2018 11:46:57 What Is Your Level Of Caffeine Consumption? Occasional 1 Cup Of Tea Information not available 04/02/2019 What Was The Date Of Your Most Recent Tobacco Screening? 04/14/2025 [email or web address] Information not available 04/14/2025 Sex: Male Functional Status Question Answer Note LastModified by BemDireto Details LastModified Time What is your level [...] available 2024 10:54:02 Brother Cerebrovascu lar accident [email or web address] Not available 12:24:12 Sister Essential hypertension [email or web address] Not available 06/2024 10:54:02 Sister Essential hypertension [email or web address] Not available 06/2024 10:54:02 Sister Hypercholest erolemia [email or web address] Not available 2018 09:06:15 Sister Hypercholest erolemia [email or web address] Not available 2018 09:06:19 Medical History Condition Response Coronary Artery Disease N Blood Diseases N Kidney Stones N Hyperthyroidism N Blood Transfusion N Lung Disease N Depression N COPD N Defects or Inherited Disease N Difficulty Swallowing N Anesthesia Complications N Anxiety Disorder N Muscle, Joint, or Bone Problems Y Obesity N Polyps N Mental Disorder N Cancer N Bladder or Kidney Problems N High Cholesterol Y Liver Disease N Kidney Disease N Allergies/Hayfever N Heart Problems N Anemia N Constipation N Diabetes N Congestive Heart Failure (CHF) N Abuse/Domestic Violence N Diverticulitis N Asthma N Reflux/GERD N Hepatitis N Pulmonary Embolism N Hypertension Y Chicken Pox Y Immunizations Vaccine Type Date Status Note Provider Nam e and Address Organization Details Recorded Time zoster recombinant 07/02/19 22 completed Joseline Gencarellelijah day [facility] 03/29/2023 08:49:04 Influenza, split virus, quadrivalent, preservative 03/31/20 21 completed Joseline Austincarellelijah day [facility] 03/29/2023 08:49:04 SARS-COV-2 (COVID-19) vaccine, UNSPECIFIED 05/10/20 23 completed Joseline day [facility] 05/10/2023 10:46:04 Tdap 04/23/20 19 completed Pillo Ramey DO [address] [place] [address], [id number] 05/10/2024 11:20:52 influenza, unspecified formulation 03/26/20 24 completed Pillo Ramey DO [address] [facility], [place], [address], [facility] 05/10/2024 11:24:33 influenza, unspecified formulation 03/26/20 25 completed Pillo Ramey, DO [address] [place], [address], [facility] 04/14/2025 09:56:24 tetanus toxoid, unspecified formulation 07/14/19 10 completed Joseline Gencarelle null, [facility] 03/29/2023 08:49:04 pneumococcal, unspecified formulation 02/13/20 12 completed Joseline Gencarelle null, [facility] 03/29/2023 08:49:04 pneumococcal, unspecified formulation 08/05/19 15 completed [facility]/29/2023 08:49:04 zoster live 09/13/19 13 completed Jesusita Darby null, [facility] 07/23/2018 08:59:38 Tdap 09/29/19 19 completed Viridiana Lewis null, [facility] 10/01/2018 08:08:17 pneumococcal polysaccharide PPV23 09/29/19 19 completed Joseline Gencarelle [facility] 03/29/2023 08:49:04 Influenza, split virus, quadrivalent, preservative 02/13/20 19 completed Joseline Gencarelle [facility] 03/29/2023 08:49:04 Influenza, split virus, quadrivalent, preservative 01/19/20 18 completed Joseline Gencarelle null, [facility] 03/29/2023 08:49:04 Influenza, split virus, quadrivalent, preservative 01/08/20 20 completed Joseline Gencarelle null, [facility] 03/29/2023 08:49:04 COVID-19, mRNA, LNP-S, PF, 30 mcg/0.3 mL dose 08/14/19 21 completed Joseline Gencarelle null, [facility] 03/29/2023 08:49:04 COVID-19, mRNA, LNP-S, PF, 30 mcg/0.3 mL dose 09/05/19 21 completed Joseline day [facility] 03/29/2023 08:49:04 Past Encounters Encounter ID Performer Location Encounter Start Date Encounter Closed Date Diagnosis/Indication Diagnosis SNOMED-CT Code Diagnosis ICD10 Code Diagnosis IMO Codes Diagnosis Note Pillo Ramey [facility] [address] [facility],[place] [address] 09/26/2018 11:31:01 09/26/2018 13:39:42 Hypercholesterolemia 70703840 E78.00 Essential hypertension 85207721 I10 stable Vitamin D deficiency 347 54126 E55.9 Screening procedure 2012 5006 Z13.9 Active or passive immunization 085628516 Z23 Impacted cerumen 2917534 6 H61.23 Adult heal th examination 581259286 Z00.00 [id number] Pillo Ramey [facility] [address] [facility],[place] [address] 04/02/2019 09:01:33 04/02/2019 10:02:21 Adult health examination 820259746 Z00.01 has thumb djd will try to get him some diclofenac gel Osteoarthr osis of the carpometacarpal joint of the thumb 68950737 M18.9 will try voltaren gell if unable consider hand specialist [id number] Pillo Ramey [facility] [address] [facility],[place] [address] 08/19/2019 10:02:07 08/19/2019 10:34:36 Essential hypertension 39527059 I10 doing great and is feeling good will cont to do what hes doing as he is active and eating right Hypercholesterolemia 136 99076 E78.00 excellent lab doing great no change in meds [id number] Pillo Ramey [facility] [address] [facility], [place] [address] 04/15/2020 14:16:08 04/15/2020 15:04:04 Active or passive immunization 420591036 Z23 discussed and he is utd Adult heal th examination 417679742 Z00.01 has thumb djd will try to get to the hand doc but he will need to call she has offered him a mary inj to the base of the thumb [id number] Pillo Ramey [facility] [address] [facility],[place] [address] 10/26/2020 09:45:49 10/26/2020 11:07:23 Hypercholesterolemia 66867596 E78.00 excellent lab doing great no change in meds ldl was 98 hdl 43 Essential hypertension 76276161 I10 doing great and is feeling good will cont to do what hes doing as he is active and eating right Gastroesop hageal reflux disease 003891593 K21.9 will have the pt start the omeprazole daily and then modify to keep the reflux quiet [id number] Pillo Quinonez Meen[facility]shi [facility] [address] [facility],[place] [address] 07/23/2021 11:15:44 07/26/2021 14:21:45 Active or passive immunization 551777939 Z23 discussed and he is utd Adult heal th examination 395918082 Z00.01 has thumb djd did get to the hand doc but he will need to call as needed base of the thumb has more pain lately Essential hypertension 09052138 I10 doing great and is feeling good will cont to do what hes doing as he is active and eating rightbp is excellent Gastroesop hageal reflux disease 946141063 K21.9 will have the pt start the omeprazole daily and then modify to keep the reflux quiet Hypercholesterolemia 136 39594 E78.00 excellent lab doing great no change in meds ldl was 98 hdl 43 [id number] Pillo Quinonez Meenakshi [facility] [address] [facility] [place] [address] 01/24/2022 10:14:24 01/24/2022 10:52:17 Essential hypertension 28828670 I10 doing great and is feeling good will cont to do what hes doing as he is active and eating rightbp is excellent Gastroesop hageal reflux disease 265562453 K21.9 will have the pt start the omeprazole daily and then modify to keep the reflux quiet Hypercholesterolemia 136 32236 E78.00 excellent lab doing great no change in meds ldl was 98 hdl 43 [id number] Pillo Ramey, [facility] [address] [facility] on [place] [facility] [place] [address] 09/20/2022 11:16:28 09/20/2022 12:19:38 Active or passive immunization 055016355 Z23 discussed and he is ut Adult heal th examination 771553723 Z00.00 here for for cpe doing great no issues amzing cont exercising and eating good'revie wed lab from 6 mo ago Essential hypertension 92558172 I10 doing great and is feeling good will cont to do what hes doing as he is active and eating rightbp is excellent Hypercholesterolemia 136 50772 E78.00 excellent lab doing great no change in meds ldl was 98 hdl 43 [id number] Pillo Ramey, [facility] [address] [facility] [address] [place], [place] [employer] [place] [address] 03/29/2023 08:48:52 03/29/2023 09:51:45 Basal cell carcinoma of skin 298849552 C44.91 followed by dermatolog ist Essential hypertension 10743522 I10 doing great and is feeling good will cont to do what he's doing as he is active and eating rightbp is excellent Polyp of colon 32053909 K63.5 will order cologuard Prostate s pecific antigen above reference range 053812367 R97.20 [id number] Pillo Ramey, [facility] [address] [facility] [address] [place] [employer] [facility] [place] [address] 10/03/2023 10:50:54 10/03/2023 13:10:12 Active or passive immunization 979084132 Z23 discussed and he is ut Adult heal th examination 005902439 Z00.00 here for for cpe doing great no issues amzing cont exercising and eating good'revie wed lab from 6 mo ago Depression screening 171 842963 Z13.31 Negative Basal cell carcinoma of skin 610404570 C44.91 followed by dermatolog ist no issues Hypercholesterolemia 136 75054 E78.00 last lab was excellent lab doing great no change in meds ldl was 98 hdl 43 Gastroesop hageal reflux disease 745090072 K21.9 the omeprazole daily working well [id number] Pillo Ramey [facility] [address] [facility] [address] [place] [facility] [place] [address] 05/10/2024 10:48:13 05/10/2024 11:27:29 Adult health examination 018633626 Z00.01 here for for cpe doing great no issues amzing cont exercising and eating good'revie wed lab from 6 mo ago Screening for cardiovascular system disease 560876920 Z13.6 reviewed lipids in detail Screening for malignant neoplasm of colon 127395459 Z12.11 cologuard done last [id number] Pillo Ramey [facility] [address] [facility] [address] [place] [address] 08/19/2024 14:37:39 08/19/2024 15:16:58 Acute sinusitis 88630443 J01.01 will set up with pred taper for the sig inflammati on Acute otitis media 85834 03 H65.03 will set up with cipro [id number] Pillo Ramey [facility] [address] [facility] [address] [place] [address] 10/14/2024 10:53:10 10/14/2024 11:41:01 Active or passive immunization 069932044 Z23 discussed and he is utd Essential hypertension 92687912 I10 doing great and is feeling good will cont to do what he's doing as he is active and eating rightbp is excellent Hypercholesterolemia 136 76098 E78.00 last lab was excellent lab doing great no change in meds ldl was 98 hdl 43 Screening for cardiovascular system disease 071284020 Z13.6 reviewed lipids in detail Screening for malignant neoplasm of colon 975504761 Z12.11 cologuard done last apr Well adult 221194277 Z00 .00 [id number] here for for cpe doing great no issues amzing cont exercising and eating good'revie wed lab from 6 mo ago Sensorineu ral hearing loss of bilateral ears 492354719 H90.3 48956342 [id number] Pillo Ramey [facility] [address] [facility] [address],[place] [address] 04/14/2025 09:22:55 04/16/2025 16:40:29 Depression screening 987338048 Z13.31 Negative Essential hypertension 18471063 I10 doing great and is feeling good will cont to do what he's doing as he is active and eating rightbp is excellent Osteopenia 206289291 M85 .80 05050219 Health Concerns Section Related Observation LastModified by Organization Detai ls LastModified Time None Recorded Concern Status LastModified by Organization Details LastModified Time None Recorded Advance Directives Directive None Recorded Payers Insurance Date Sequence Insurance Name Policy Number Policy House Covered Member ID House Member ID Guarantor Name 04/14/2025 2 [place] [employer] 111 Dean Garcia [id number] Dean Garcia 04/14/2025 1 [place] [facility] Dean Garcia [id number] Dean Garcia Notes Date Note Type Note Provider Name and Address Organization Details Recorded Time 10/03/19 24 text/htm l Annual WellnessReported by [...] is goodstays very active walks daily Pillo Ramey DO [address] [facility], [place], [address], [facility] 10/03/2023 11:44:32 05/10/20 24 text/htm [...] april last year Pillo Ramey DO [address] [place], [address], [facility] 05/10/2024 11:25:17 08/20/19 25 text/htm l ROS as noted in the HPI f/u UC sinus infection and ear infection given amox and neomycin ear drop at no effect symptoms still prominent for patient recommended alt therapy with pred taperwill switch to alt abx avoid fluid in the ear patient agreeswill update me monday OVIDIO WHEELER [address] [place], [address], [facility] 08/19/2024 15:13:38 10/15/19 [...] doing well overall Pillo Ramey, DO [address] [facility], [place], [address], [facility] 10/14/2024 11:32:00 04/14/20 25 text/htm l Care Management - HypertensionReported by PatientHPIFor self care, patient reportsnot under emotional stress. For severity, patient reportssymptoms are improvinganddoes not interfere with daily activities. For associated symptoms, patient reportsno dizziness,no lightheadedness,no chest pain,no shortness of breath,no palpitations,no edema,no calf muscle cramps,no blurred vision,no confusion,no headaches, andno fatigue.ROS as noted in the HPI her e for rechk and is feeling well overallno cp no sobkeeping activecontinues to work out every other day !!!!walking daily Pillo Ramey, DO [address] [facility], [place], [address], [facility] 04/14/2025 10:06:15
--- OUTSIDE RECORDS SUMMARY | 2025-04-16 16:51 | XMS_ITS | Continuity of Care Document ---
Author Organization [facility], [facility] Address [address] [place] [address] [place] [address] Assessment Encounter Date Assessment Date Assessment LastModified by Organization Details LastModified Time 04/14/2025 04/14/2025 [address] [place] [address] ([employer]) MDM MODERATE MUST MEET 2 OUT OF [...] Not available Not available Not available Lab None recorded. Referral None recorded. Procedures None recorded. Surgeries None recorded. Imaging bone density 2024 025 [facility] (Imaging), [address] [place] [address], [id number], 04/16/2025 16:40:29 Medication Orders None recorded. Patient TargetsNo targets recorded. Patient InstructionsNo instructions recorded. Reason for Referral None Reported. Results Created Date Observation Date Name Description Value Unit Range Abnormal Flag Note LastModifiedBy Organization Detail LastModifiedTime Result Notes None recorded. Problems Name Problem SNOMED Code Status Onset Date Resolution Date Notes Provider Name and Address Organization Details Recorded Time Essential hypertensi on 13644149 Active 2018 Not Available [facility] 2 09:40:59 Hyperchole sterolemia 48870004 Active 2018 2005 Not Available [facility] 2 09:40:59 Basal cell carcinoma of skin 978756115 Active 2018 nose Not Available [facility] 2 09:40:59 Polyp of colon 57877762 Active 2018 2002 Not Available [facility] 2 09:40:59 Gastroesop hageal reflux disease 910736333 Active 2020 Not Available [facility] 2 09:40:59 Prostate specific antigen above reference range 367187362 Active 2022 Pillo Ramey DO [address] [place] [address], [phone], [facility] 3 09:18:27 Acute sinusitis 63976181 Active 2024 OVIDIO WHEELER [address] [place] [address], [phone], [facility] 5 15:05:46 Acute otitis media 3443120 Active 2024 OVIDIO WHEELER [address] [place] [address], [phone], [facility] 5 15:07:32 Acute otitis media 8231672 Active 2024 OVIDIO WHEELER [address] [place] [address], [phone], [facility] 5 15:07:38 Sensorineu ral hearing loss of bilateral ears 055046524 Active 2024 Pillo Ramey DO [address] [place] [address], [phone], [facility] 5 11:30:23 Problem Notes None recorded. Procedures Surgical History Date Name Laterality Status Provider Name and Address Organization Details Recorded Time 10/14/19 18 extraction of cataract completed Fatoumata Cotton NP, [address] [place], [address], [facility] 09/26/2018 11:55:03 05/15/19 12 excision of hernial sac of left inguinal canal completed Fatoumata Cotton NP, [address] [place], [address], [facility] 09/26/2018 12:24:59 Imaging [...] Available Not Available Not Available Fluzone High-Dose 8765-3073 (PF) 180 mcg/0.5 mL intramuscul ar syringe 04/02 completed Not Available Not Available Not Available Fluad Quad (6 5yr up)(PF) 60 mcg (15 mcg x 4)/0.5mL IM syringe TO BE ADMINISTE RED BY PHARMACIS T FOR IMMUNIZAT ION 04/15 completed Not Available Not Available Not Available Vitals Date Recorded Body height Oxygen saturation Heart rate Systolic And Diastolic Provider Name and Address Organization Details Last Updated DateTime 04/14/2025 166.37 cm 99 % 55 /min 128/82 mm[Hg] ISABELA WOO [facility] 04/14/2025 09:32:36 Social History Question Answer Notes LastModified by [employer] Details LastModified Time Tobacco Smoking Status Never Smoker Jesusita day [facility] 09/26/2018 11:46:57 What Is Your Level Of Caffeine Consumption? Occasional 1 Cup Of Tea Information not available 04/02/2019 What Was The Date Of Your Most Recent Tobacco Screening? 04/14/2025 [email or web address] Information not available 04/14/2025 Sex: Male Functional Status Question Answer Note LastModified by [employer] Details LastModified Time What is your level [...] 09:06:19 Medical History Condition Response Allergies/Hayfever N Coronary Artery Disease N Heart Problems N Kidney Stones N Blood Diseases N Hyperthyroidism N Blood Transfusion N Lung Disease N COPD N Depression N Defects or Inherited Disease N Anemia N Difficulty Swallowing N Constipation N Anesthesia Complications N Diabetes N Anxiety Disorder N Muscle, Joint, or Bone Problems Y Obesity N Polyps N Mental Disorder N Congestive Heart Failure (CHF) N Cancer N Diverticulitis N Abuse/Domestic Violence N Asthma N Bladder or Kidney Problems N Reflux/GERD N High Cholesterol Y Hepatitis N Liver Disease N Pulmonary Embolism N Hypertension Y Chicken Pox Y Kidney Disease N Immunizations Vaccine Type Date Status Note Provider Nam e and Address Organization Details Recorded Time zoster recombinant 07/02/19 22 completed Joseline day [facility] 03/29/2023 08:49:04 Influenza, split virus, quadrivalent, preservative 03/31/20 21 completed Joseline day [facility] 03/29/2023 08:49:04 SARS-COV-2 (COVID-19) vaccine, UNSPECIFIED 05/10/20 23 [facility] [place] 05/10/2023 10:46:04 Tdap 04/23/20 19 completed Pillo Ramey, [address] [place] [address], [phone], [facility] 05/10/2024 11:20:52 influenza, unspecified formulation 03/26/20 24 completed Pillo Ramey, [address] [place] [address], [phone], [facility] 05/10/2024 11:24:33 influenza, unspecified formulation 03/26/20 25 completed Pillo Ramey, [address] [place] [address], [phone], [facility] 04/14/2025 09:56:24 tetanus toxoid, unspecified formulation 07/14/19 10 completed Joseline Gencarelle [facility] 03/29/2023 08:49:04 pneumococcal, unspecified formulation 02/13/20 12 completed Joseline Gencarelle [facility] 03/29/2023 08:49:04 pneumococcal, unspecified formulation 08/05/19 15 completed Joseline Gencarelle [facility] 03/29/2023 08:49:04 zoster live 09/13/19 13 completed Jesusita Darby null, [facility] 07/23/2018 08:59:38 Tdap 09/29/19 19 [facility] 08:08:17 pneumococcal polysaccharide PPV23 09/29/19 19 completed Joseline Gencarelle [facility] 03/29/2023 08:49:04 Influenza, split virus, quadrivalent, preservative 02/13/20 19 [facility]2023 08:49:04 Influenza, split virus, quadrivalent, preservative 01/19/20 18 [facility]23 08:49:04 Influenza, split virus, quadrivalent, preservative 01/08/20 20 completed Joseline Gencarelle shay [facility] 03/29/2023 08:49:04 COVID-19, mRNA, LNP-S, PF, 30 mcg/0.3 mL dose 08/14/19 21 completed Joseline Gencarelle shay, [facility] 03/29/2023 08:49:04 COVID-19, mRNA, LNP-S, PF, 30 mcg/0.3 mL dose 09/05/19 21 completed Joseline Gencarelle shay, [facility] 03/29/2023 08:49:04 Past Encounters Encounter ID Performer Location Encounter Start Date Encounter Closed Date Diagnosis/Indication Diagnosis SNOMED-CT Code Diagnosis ICD10 Code Diagnosis IMO Codes Diagnosis Note [id number] Pillo Ramey [facility] [address],[place] [address] 04/14/2025 09:22:55 04/16/2025 16:40:29 Depression screening 494841374 Z13.31 Negative Essential hypertension 46234086 I10 doing great and is feeling good will cont to do what he's doing as he is active and eating rightbp is excellent Osteopenia 193664641 M85 .80 14579207 Health Concerns Section Related Observation LastModified by Organization Detai ls LastModified Time None Recorded Concern Status LastModified by Organization Details LastModified Time None Recorded Payers Encounter Date Sequence Insurance Name Policy Number Policy House Covered Member ID House Member ID Guarantor Name 04/14/2025 2 [place] [id number] Dean Garcia [id number] Dean Garcia 04/14/2025 1 [place] [employer] Dean Garcia [id number] Dean Garcia Notes Date Note Type Note Provider Name and Address Organization Details Recorded Time 5 text/htm l Care Management - HypertensionReported by [...] every other day !!!!walking daily Pillo Ramey, [address], [place], [address], [facility] 04/14/2025 10:06:15
--- OUTSIDE RECORDS SUMMARY | 2025-04-16 16:52 | XMS_ITS | Patient Health Record ---
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 alcohol Problems Problem Type SNOMED Code ICD Code Onset Dates Problem Status W/U Status Risk Notes Problem Already on aspirin (655282587) Long-term (current) use of aspirin (V58.66) Active confirmed Problem Colon cancer screening (008913722) Colon cancer screening (V76.51) Active confirmed Problem History of adenomatous polyp of colon (850539095) History of adenomatous polyp of colon (V12.72) Active confirmed Plan Of Treatment Future Test Test Name Order Date COLONOSCOPY 11/09/2012 Insurance Providers Payer Name Payer Address Payer Phone Subscriber Number Group Number Insured Name Patient Relationship to Insured Coverage Start Date Coverage End Date [facility] [address] [place], [place] [id number] PAWELERNESTINA Noe Self - patient is the insured Medical (General) History Medical History History ICD Code colonoscopy 04-04-2008--neg. except sigmoid diverticulosis and int. hemorrhoids colon polyps-tubular adenoma removed in 07/2001 hypertension Denies UT,DM,CVA,Lung disease,renal dise ase Hyperlipdemia Surgical History Surgery Date(Month/Year) hernia surgery appendectomy Basal cell on nose in 07/2012
== END 2025-04-04 14:02 | disposition home or self-care (01) ==
LOC: HO.LNP 14:01
PROVIDERS: Visit Provider Internal Medicine
DX: Z12.11 Encounter for screening for malignant neoplasm of colon (principal)
CPT/HCPCS: 82274